=== PATIENT | male | born 1985 | race Caucasian/White ===

== ENCOUNTER 2020-01-11 00:30 | Emergency (ER) | payer OTHER, SELFPAY ==
[2020-01-11 00:31] VITALS: BP 117/82; PULSE 66; RESP 18; TEMP 36.3; O2SAT 98; BMI 27.3
--- NOTE | 2020-01-11 00:55 | ED.VIS.GEN ---
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 He is here for occupational exposure blood work. Past Medical History Primary Care Physician: Care Physician,No Primary [Primary Care Provider] - Past Medical History: None Lives: Alone Smoking Status: Never smoker Review of Systems General: Denies: Chills, Fever, Sweats Musculoskeletal: Denies: Swelling, Extremity Pain Skin: Reports: Wounds. Denies: Rash, Abscess Physical Exam Vital Signs/Narrative: Vital Signs Temp Pulse Resp BP Pulse Ox 01/11/20 00:31 97.3 F L 66 18 117/82 H 98 General: Well nourished, Well developed, No Acute Distress Extremities: Nontender - Full range of motion of left index finger, No edema Skin: Normal color, No rash, Trauma - Very small nonbleeding nontender superficial pinpoint-sized wound at the radial aspect of the proximal left index finger. Nontender no signs of infection. Neurological: Alert, Oriented x3, Cranial nerves II-XII grossly intact, Normal Strength, Normal Sensation Psychological: Normal affect, Normal Mood Diagnostic/Tx/Re-eval - Medical Decision Making Appropriate occupational exposure blood work obtained, from him and the source patient. According to CDC recommendations, no postexposure prophylaxis is indicated since this was not a hollow bore needle and the patient is available for testing and not a known HIV-positive. ED Disposition - Plan for ED Patient: Disposition: Home or Assisted Living Diagnosis: Accidental needlestick injury with exposure to body fluid Instructions: ED NEEDLE STICK Health Care Worker Referrals: Geovanni Fuchs [[facility]] - 3-5 Days
[2020-01-11 01:54] LABS: HIV - WCH Non-Reactive (Nonreactive); Hepatitis B Surface Antibody Reactive; Hepatitis B Surface Antigen Non-Reactive (Nonreactive); Hepatitis C Antibody Non-Reactive (Nonreactive)
== END 2020-01-11 01:35 | disposition home or self-care (01) ==
PROVIDERS: Emergency Provider Emergency Medicine
DX: Z77.21 Contact with and (suspected) exposure to potentially hazardous body fluids (principal); W46.0XXA Contact with hypodermic needle, initial encounter
CPT/HCPCS: 36415; 86703; 86706; 86803; 87340; 99282